=== PATIENT | female | born 1980 | race Caucasian/White ===

== ENCOUNTER 2018-05-25 15:48 | Emergency (ER) | payer BC, MEDICAID ==
[~2018-05-25] VITALS: Ht 170.2 cm; Wt 71.7 kg
[2018-05-25 16:07] VITALS: BP_SYST 135
[2018-05-25] MEDS ORDERED: fentaNYL CITRATE/PF 100 MCG/2 ML AMP IM ONE (16:45)
[2018-05-25] MEDS ORDERED: KETOROLAC TROMETHAMINE 30 MG VIAL IM ONE (16:45)
[2018-05-25 17:32] VITALS: BP_SYST 120
== END 2018-05-25 17:32 | disposition home or self-care (01) ==
LOC: SED 15:48
DX: S39.012A Strain of muscle, fascia and tendon of lower back, initial encounter (principal); R03.0 Elevated blood-pressure reading, without diagnosis of hypertension; X58.XXXA Exposure to other specified factors, initial encounter; Y93.89 Activity, other specified; Y92.89 Other specified places as the place of occurrence of the external cause; Y99.8 Other external cause status
CPT/HCPCS: 96372; 99283; J1885; J3010; 99284

== ENCOUNTER 2018-08-04 23:52 | Emergency (ER) | payer BC, MEDICAID ==
[~2018-08-04] VITALS: Ht 170.2 cm; Wt 71.7 kg
[2018-08-05 00:10] VITALS: BP_SYST 150
[2018-08-05] MEDS ORDERED: FERR-69 PO (00:17)
[2018-08-05] MEDS ORDERED: NACL 0.9% 1,000 ML IV ONE (00:57)
[2018-08-05] MEDS ORDERED: KETOROLAC TROMETHAMINE 30 MG VIAL IVP ONE (01:00)
[2018-08-05 01:12] LABS: BILIRUBIN,URINE NEGATIVE (NEGATIVE); BLOOD, URINE NEGATIVE (NEGATIVE); CLARITY/URINE CLEAR (CLEAR); COLOR,URINE YELLOW (YELLOW); GLUCOSE,URINE NEGATIVE (NEGATIVE); KETONES,URINE NEGATIVE (NEGATIVE); LEUKOCYTE ESTERASE ,URINE NEGATIVE (NEGATIVE); NITRITE, URINE NEGATIVE (NEGATIVE); PROTEIN URINE NEGATIVE (NEGATIVE); UROBILINOGEN,URINE 0.2 (0.2-1.0)
[2018-08-05 01:38] LABS: BASOPHILS % (AUTO) 0.5 % (0.0-2.0); EOSINOPHILS # (AUTO) 0.2 K/uL (0.0-0.4); EOSINOPHILS % (AUTO) 2.7 % (0.0-4.0); HEMATOCRIT 31.5 % (36-48); HEMOGLOBIN 9.8 g/dL (12.0-16.0); LYMPHOCYTES # (AUTO) 1.3 K/uL (1.0-5.5); LYMPHOCYTES % (AUTO) 23.1 % (20.5-51.5); MEAN CORPUSCULAR HEMOGLOBIN 22 pg (27-31); MEAN CORPUSCULAR HGB CONC 31 % (32-36); MEAN CORPUSCULAR VOLUME 70 fL (79.0-98.0); MONOCYTES # (AUTO) 0.4 K/uL (0.0-1.0); MONOCYTES % (AUTO) 6.6 % (1.7-9.3); NEUTROPHILS # (AUTO) 3.9 K/uL (1.8-7.7); NEUTROPHILS % (AUTO) 67.1 % (40.0-70.0); PLATELET COUNT (AUTO) 274 K/uL (130-430); RED BLOOD CELL COUNT(AUTO) 4.53 MIL/uL (4.2-6.2); RED CELL DISTRIBUTION WIDTH 16.7 % (9.0-15.0); WHITE BLOOD COUNT (AUTO) 5.8 K/uL (4.8-10.8)
[2018-08-05 02:04] LABS: ALBUMIN 3.8 g/dL (3.4-4.8); CALCIUM 9.1 mg/dL (8.4-11.0); CREATININE 0.73 mg/dL (0.55-1.30); POTASSIUM 3.9 mmol/L (3.5-5.1); TOTAL BILIRUBIN 0.3 mg/dL (0.0-1.0)
[2018-08-05] MEDS ORDERED: MORPHINE 4 MG/ML INJ. SYRINGE IVP ONE (02:30)
[2018-08-05] MEDS ORDERED: DIPHENHYDRAMINE INJ 50 MG/ML VIAL IVP ONE (02:30)
[2018-08-05 03:00] VITALS: BP_SYST 130
== END 2018-08-05 03:00 | disposition home or self-care (01) ==
LOC: SED 23:52
DX: R10.33 Periumbilical pain (principal); D64.9 Anemia, unspecified
CPT/HCPCS: 36415; 74176; 80053; 81003; 81025; 85025; 96374; 96375; 99284; J1200; J1885; J2270; J7030

== ENCOUNTER 2018-10-05 18:23 | Emergency (ER) | payer MEDICAID ==
[~2018-10-05] VITALS: Ht 170.2 cm; Wt 71.7 kg
[~2018-10-05 18:23] MED LIST: FERR-69 PO
[2018-10-05 18:48] VITALS: BP_SYST 123
[2018-10-05] MEDS ORDERED: KETOROLAC TROMETHAMINE 60 MG/2 ML VIAL IM ONE (19:30)
[2018-10-05] MEDS ORDERED: HYDROcodone/ACETAMIN 7.5-325 MG TAB PO ONE (19:45)
[2018-10-05 20:04] VITALS: BP_SYST 123
== END 2018-10-05 20:04 | disposition home or self-care (01) ==
LOC: SED 18:23
DX: M54.30 Sciatica, unspecified side (principal); R03.0 Elevated blood-pressure reading, without diagnosis of hypertension; Z86.2 Personal history of diseases of the blood and blood-forming organs and certain disorders involving the immune mechanism
CPT/HCPCS: 81002; 81025; 96372; 99283; J1885

== ENCOUNTER 2018-10-07 13:45 | Emergency (ER) | payer MEDICAID ==
[~2018-10-07] VITALS: Ht 170.2 cm; Wt 71.7 kg
[2018-10-07 13:45] VITALS: BP_SYST 126
[2018-10-07 16:10] VITALS: BP_SYST 126
== END 2018-10-07 16:10 | disposition home or self-care (01) ==
LOC: SED 13:45
DX: M54.30 Sciatica, unspecified side (principal); Z86.2 Personal history of diseases of the blood and blood-forming organs and certain disorders involving the immune mechanism
CPT/HCPCS: 99283